=== PATIENT | female | born 1995 | race Hispanic/Latino ===

== ENCOUNTER 2021-01-24 08:27 | Inpatient (IN) | payer MEDICAID ==
[~2021-01-24] VITALS: Ht 154.9 cm; Wt 81.6 kg
[2021-01-24] MEDS ORDERED: OXYTOCIN-LR 20 UNITS/1000 ML 1,000 ML IV ONE (08:59)
[2021-01-24 09:13] LABS: HEMATOCRIT 31.8 % (36-48); MEAN CORPUSCULAR HGB CONC 31.1 g/dL (32.0-36.0); PLATELET COUNT (AUTO) 297 K/uL (130-400); RED CELL DISTRIBUTION WIDTH 16.2 % (11.0-15.5); WHITE BLOOD COUNT (AUTO) 19.2 K/uL (4.8-10.8)
[2021-01-24 09:29] LABS: APPEARANCE,URINE Clear (CLEAR); BILIRUBIN,URINE Negative (NEGATIVE); COLOR,URINE Yellow (YELLOW); GLUCOSE, URINE (UA) Negative (NEGATIVE); KETONES,URINE Negative (NEGATIVE); LEUKOCYTE ESTERASE ,URINE Negative (NEGATIVE); NITRATE,URINE Negative (NEGATIVE); OCCULT BLOOD,URINE Negative (NEGATIVE); PH,URINE 6.5 (5.0-8.0); PROTEIN,URINE Negative (NEGATIVE)
[2021-01-24] MEDS ORDERED: OXYTOCIN-LR 20 UNITS/1000 ML 1,000 ML IV SCH (09:30)
[2021-01-24] MEDS ORDERED: LACTATED RINGERS 1000ML 1,000 ML IV PRN (09:30)
[2021-01-24 09:37] LABS: AMPHET/METH SCREEN,URINE NEGATIVE (NEGATIVE); BARBITURATE SCREEN, URINE NEGATIVE (NEGATIVE); BENZODIAZEPINES SCREEN,URINE NEGATIVE (NEGATIVE); CANNABINOID SCREEN,URINE NEGATIVE (NEGATIVE); COCAINE SCREEN,URINE POSITIVE (NEGATIVE); OPIATE SCREEN,URINE NEGATIVE (NEGATIVE); PHENCYCLIDINE SCREEN,URINE NEGATIVE (NEGATIVE)
[2021-01-24] MEDS ORDERED: IBUPROFEN 600 MG TABLET ONE (11:20)
[2021-01-24] MEDS ORDERED: ACETAMINOPHEN WITH CODEINE 1 TAB TAB PO PRN (11:30)
[2021-01-24] MEDS ORDERED: BENZOCAINE/LANOLIN/ALOE VERA 60 ML AEROSOL TP PRN (11:30)
[2021-01-24] MEDS ORDERED: ACETAMINOPHEN 325 MG TAB PO PRN (11:30)
[2021-01-24] MEDS ORDERED: MEASLES/MUMPS/RUBELLA VACCINE, LIVE 0.5 ML/VIAL SQ PRN (11:30)
[2021-01-24] MEDS ORDERED: LANOLIN 30GM OINTMENT TP PRN (11:30)
[2021-01-24] MEDS ORDERED: WITCH HAZEL 1 PAD TP PRN (11:30)
[2021-01-24] MEDS ORDERED: DIPH,PERTUSS(ACELL),TET VAC/PF 0.5 ML VIAL IM PRN (11:30)
[2021-01-24 11:31] VITALS: BP 119/73
[2021-01-24 16:15] VITALS: BP 120/78
[2021-01-24] MEDS: IBUPROFEN 600 MG TABLET PO PRN (17:52)
[2021-01-24] MEDS ORDERED: PREN1TAB63 PO (18:18)
[2021-01-24 19:58] VITALS: BP 122/70
[2021-01-24] MEDS: DOCUSATE SODIUM 100 MG CAP PO SCH (20:13)
[2021-01-24 23:30] VITALS: BP 137/70
[2021-01-25] MEDS ORDERED: DiphenhydrAMINE HCL 25 MG/10 ML ELIXIR UDCUP PO ONE
[2021-01-25 03:51] VITALS: BP 98/60
[2021-01-25 07:50] VITALS: BP 114/71
[2021-01-25 08:24] LABS: RAPID PLASMA REAGIN NONREACTIVE (NONREACTIVE)
[2021-01-25] MEDS: DOCUSATE SODIUM 100 MG CAP PO SCH (09:03)
[2021-01-25] MEDS: IBUPROFEN 600 MG TABLET PO PRN ×2 (09:03→17:20)
[2021-01-25 11:20] VITALS: BP 101/57
[2021-01-25 16:25] VITALS: BP 94/55
[2021-01-25] MEDS ORDERED: DIPHENHYDRAMINE HCL 25 MG CAPSULE PO ONE ×2 (17:00)
[2021-01-25 19:35] VITALS: BP 116/72
[2021-01-26 02:08] LABS: HEPATITIS Bs ANTIGEN SCREEN P Negative (Negative)
== END 2021-01-25 19:47 | disposition home or self-care (01) | DRG 560 ==
LOC: EDH 08:27 → LDH 08:28 → OBSVTOIN 08:28 → WSH 11:30
PROVIDERS: ADMIT Specialist; ATTEND Specialist
PROC: 10E0XZZ Delivery of Products of Conception, External Approach (ICD-10-PCS; principal; 2021-01-24)
PROC: 3E0234Z Introduction of Serum, Toxoid and Vaccine into Muscle, Percutaneous Approach (ICD-10-PCS; 2021-01-24)
DX: O99.324 Drug use complicating childbirth (principal); F14.90 Cocaine use, unspecified, uncomplicated; Z37.0 Single live birth; Z3A.32 32 weeks gestation of pregnancy; Z23 Encounter for immunization; Z53.29 Procedure and treatment not carried out because of patient's decision for other reasons
CPT/HCPCS: 36415; 80305; 81003; 85027; 86592; 86701; 86850; 86900; 86901; 87340; 87390; A4351; G0378; J2590; Q0163